=== PATIENT | male | born 1965 | race African-American/Black ===

== ENCOUNTER 2022-04-17 14:35 | Emergency (ER) | payer OTHER ==
[2022-04-17 14:41] VITALS: TEMP 98.3
[2022-04-17] MEDS ORDERED: LIDOCAINE 1% INJ 10MG/ML (20 ML MDV) SQ ONE (15:03)
--- NOTE | 2022-04-17 15:15 | ED ---
General Adult HPI - General Chief complaint: Extremity Injury, Upper Stated complaint: IHS-finger injury Time Seen by Provider: 04/17/22 15:00 Source: patient, RN notes reviewed, old records reviewed Mode of arrival: ambulatory Limitations: no limitations - History of Present Illness Initial comments: 56-year-old male status post slip and fall with left hand injury. Patient did not injure his head or neck. No other complaints, pain is localized to the third digit left hand. There is deformity noted by the patient. Pain with any movement. This occurred just prior to arrival. - Related Data Allergies Allergy/AdvReac Type Severity Reaction Status Date / Time No Known Allergies Allergy Verified 04/17/22 14:41 Review of Systems ROS Statement: Those systems with pertinent positive or pertinent negative responses have been documented in the HPI. ROS Other: All systems not noted in ROS Statement are negative. Past Medical History Past Medical History: Hyperlipidemia, Hypertension History of Any Multi-Drug Resistant Organisms: None Reported Past Surgical History: No Surgical Hx Reported Past Psychological History: No Psychological Hx Reported Smoking Status: Never smoker Past Alcohol Use History: None Reported Past Drug Use History: None Reported General Exam Limitations: no limitations General appearance: alert, in no apparent distress Head exam: Present: atraumatic, normocephalic Eye exam: Present: normal appearance, PERRL Neck exam: Present: normal inspection. Absent: tenderness, meningismus Respiratory exam: Present: normal lung sounds bilaterally. Absent: respiratory distress, wheezes Cardiovascular Exam: Present: regular rate, normal rhythm GI/Abdominal exam: Present: soft. Absent: distended, tenderness, guarding Extremities exam: Present: other (Deformity left hand, third digit with ulnar deviation of the third digit at the proximal interphalangeal joint) Neurological exam: Present: alert, oriented X3, CN II-XII intact. Absent: motor sensory deficit Psychiatric exam: Present: normal affect, normal mood Skin exam: Present: warm, dry, intact. Absent: cyanosis, diaphoretic Course Vital Signs 04/17/22 14:38 Temperature 98.3 F Pulse Rate 68 Respiratory 16 Rate Blood Pressure 202/102 O2 Sat by Pulse 99 Oximetry Procedures - Nerve Block Consent Obtained: verbal consent Local Anesthetic Used: Lidocaine 1% Amount of anesthesia used: 5 Side: left Nerve Blocks: digital Complications: none Patient Tolerated Procedure: well - Orthopedic Joint Reduction Joint #1 Consent Obtained: verbal consent Side: left Joint Reduction Location: finger Analgesia: digital block Local Anesthetic Used: Lidocaine 1% Amount of Anesthetic Used (mLs): 5 Technique Used: direct manipulation Post-Reduction Neuro Exam: intact Post-Reduction Vascular Exam: intact Post Reduction X-Ray Obtained: Yes Post Reduction X-Ray Results: reduced Splint Applied: Yes Patient Tolerated Procedure: well Medical Decision Making - Medical Decision Making 56-year-old gentleman with mechanical trip and fall with left third finger injury. Has dislocation on a exam and dislocation on x-ray at the proximal interphalangeal joint third digit left hand. This is reduced after digital block with lidocaine is performed. Posterior reduction x-ray shows normal alignment. Patient placed in a finger splint and given follow-up with hand surgery. Disposition Clinical Impression: Dislocation, finger Disposition: HOME SELF-CARE Condition: Good Instructions (If sedation given, give patient instructions): Finger Dislocation (ED) Is patient prescribed a controlled substance at d/c from ED?: No Referrals: Nonstaff,Physician [Primary Care Provider] - 1-2 days Katt Mcguire DO [Doctor of Osteopathic Medicine] - 1-2 days Time of Disposition: 15:34
--- NOTE | 2022-04-17 15:41 | XR ---
Left hand HISTORY: Trauma and pain 4 views the left hand There is a medial and posterior dislocation at the proximal interphalangeal joint of the third digit of the left hand with medial angulation. Arthropathy changes are present within the wrist. Small ossi fic density present lateral to the distal aspect of the proximal phalanx of the fourth digit of left hand is well-corticated and may be chronic, similar small calcification present anterior to the dista l interphalangeal joint of the fourth digit. impression: Dislocation is described.
--- NOTE | 2022-04-17 15:59 | XR ---
Left hand HISTORY: Post reduction 2 views of left hand correlated prior exam same dated earlier time There is been interval reduction of patient's dislocated third digit. There is anatomic alignment. Os sific densities about the proximal and distal interphalangeal joints of the fourth digit a be chronic . IMPRESSION: Interval reduction.
[2022-04-17 16:01] VITALS: BP 199/91; PULSE 64; RESP 18
== END 2022-04-17 16:00 | disposition home or self-care (01) ==
LOC: EC 14:35
DX: S63.273A Dislocation of unspecified interphalangeal joint of left middle finger, initial encounter (principal); I10 Essential (primary) hypertension; E78.5 Hyperlipidemia, unspecified; W01.0XXA Fall on same level from slipping, tripping and stumbling without subsequent striking against object, initial encounter
CPT/HCPCS: 99284; 73120; 73130; 26770; J2001